=== PATIENT | female | born 1990 | race Caucasian/White ===

== ENCOUNTER 2022-05-03 14:54 | Emergency (ER) | payer OTHER, MEDICAID, SELFPAY ==
[2022-05-03 15:01] VITALS: BP 114/70; PULSE 64; RESP 15; TEMP 37.1; O2SAT 98; BMI 23.5
--- NOTE | 2022-05-03 15:08 | DI.US.S_ITS ---
PROCEDURE: US PELVIC COMPLETE INDICATIONS: vaginal bleeding approx 8 weeks TECHNIQUE: Real-time scanning was performed of the pelvic organs, with image documentation. Additional endovaginal scanning was necessary due to incomplete visualization of the adnexal and endometrial structures by transabdominal scanning. COMPARISON: US, PELVIC COMPLETE, 07/09/2016, 22:38. US, PELVIC COMPLETE, 06/20/2009, 8:22. FINDINGS: Uterus: Uterus is anteverted and normal in size at 7.9 x 4.7 x 6.3 cm. The myometrium is homogeneous. The endometrium measures 4-5 mm combined thickness. There is a trace amount of fluid seen along the fundus of the uterus Ovaries: The right ovary measures 4.7 x 2.6 x 2.9 cm, with a calculated ovarian volume of 17 cc. The left ovary measures 3.8 x 2.7 x 3.2 cm, with a calculated ovarian volume of seventeen cc. The ovaries have a normal sonographic appearance, with note made of a small hypoechoic region of the right ovary, which is most likely related to a resolving corpus luteum cyst. Less than 12 follicles can be seen in each ovary. No adnexal masses are seen. Normal appearing arterial waveforms are confirmed to each ovary. Other: No pathologic free abdominal or pelvic fluid. IMPRESSION: A small amount of fluid can be seen within the fundus of the uterus. No findings of an intrauterine are seen. Given history, these imaging findings are most compatible with a completed spontaneous miscarriage. Differential diagnosis includes ectopic , yet this is considered to be less likely. Close clinical followup, with serial beta-hCG and serial ultrasound are recommended, if clinically appropriate. We strive to produce accurate, complete, and clear reports of imaging services. To assist us in improving patient care, this report was composed using standard report templates and voice recognition software. Therefore, it may contain abnormal punctuation, insertions and/or omissions. Occasional wrong-word or sound-alike substitutions may occur. Though we review the report and make efforts to correct it, we do recommend that the report be read carefully in proper context to recognize any text inaccuracies. Dictated by: Baron Jara M.D. on 05/03/2022 at 14:50 Approved by: Baron Jara M.D. on 05/03/2022 at 14:52
[2022-05-03 15:24] LABS: Bilirubin Urine UA NEGATIVE (NEGATIVE); Color Urine UA RED; Glucose Urine UA NEGATIVE (Negative); Ketones Urine UA NEGATIVE (NEGATIVE); Leukocyte Esterase Urine UA TRACE (NEGATIVE); Nitrite Urine UA POSITIVE (Negative); Occult Blood Urine UA 3+ (Negative); Protein Urine UA 2+ (Negative); Urobilinogen Urine UA 0.2 E.U./dL (0.2)
[2022-05-03 15:28] LABS: Appearance Urine UA SL CLOUDY
[2022-05-03 15:31] LABS: Bacteria Urine Occasional (0-1); Culture Indicated Urine Specimen Cultured; RBC Urine >100/HPF (0-5/HPF); Squamous Epithelial Cell Urine 1-5 /HPF (0-5/HPF); WBC Urine 1-5/HPF (0-5/HPF)
[2022-05-03 16:06] LABS: Add Manual Diff / Slide Review NO; Basophils Absolute Auto 100 /uL (0-100); Eosinophils Absolute Auto 100 /uL (0-450); Eosinophils Percent Auto 1.2 % (2-4); Hematocrit 36.3 % (36-46); Hemoglobin 12.6 g/dL (12.0-16.0); Lymphocytes Absolute Auto 1800 /uL (1100-4500); Lymphocytes Percent Auto 28.6 % (25-40); Mean Corpuscular HGB Conc 34.6 % (30-36); Mean Corpuscular Hemoglobin 32.6 PG (26-34); Mean Corpuscular Volume 94.1 fL (80-100); Monocytes Absolute Auto 600 /uL (0-900); Monocytes Percent Auto 9.3 % (3-14); Neutrophils Absolute Auto 3800 /uL (1500-7000); Neutrophils Percent Auto 59.9 % (50-75); Platelet Count 245 X10^3/uL (150-400); Red Blood Cell Count 3.86 X10^6/uL (4.0-5.2); Red Cell Distribution Width 12.8 % (11.6-14.8); White Blood Cell Count 6.4 X10^3/uL (4.5-11.0)
[2022-05-03 16:18] LABS: Alanine Aminotransferase 11 IU/L (<35); Albumin 4.4 g/dL (3.5-5.0); Albumin Globulin Ratio 1.4 (1.0-2.8); Alkaline Phosphatase 35 U/L (38-126); Aspartate Aminotransferase 20 IU/L (14-36); BUN Creatinine Ratio 23.1 (6-22); Bilirubin Total 0.2 mg/dL (0.2-1.3); Blood Urea Nitrogen 15 mg/dL (7-17); Calcium 9.2 mg/dL (8.4-10.2); Carbon Dioxide 24 mmol/L (22-32); Chloride 106 mmol/L (98-107); Estimated Glomerular Filt Rate > 60 mL/min (>60); Globulin 3.2 g/dL (1.7-4.1); Glucose 85 mg/dL (70-100); HEMOLYSIS < 15 (0-50); Potassium 3.6 mmol/L (3.4-5.1); Sodium 139 mmol/L (137-145); Total Protein 7.6 g/dL (6.3-8.2)
[2022-05-03 16:33] LABS: HCG Quantitative /Beta subunit 5.7 mIU/mL
--- NOTE | 2022-05-03 16:48 | ED_ITS ---
HPI - Female Genitourinary General Chief complaint: Vaginal Bleeding Stated complaint: thinks miscarriage at 10 weeks Time Seen by Provider: 05/03/22 15:10 Source: patient Mode of arrival: Ambulatory History of Present Illness HPI Narrative: Patient is a 31-year-old female she 1Ab, 2mc, presents today with probable completion of her miscarriage. She said that she was trying to get . She thinks she was about 10 weeks along but she has not had an ultrasound to confirm this . She says she found out she was 4 days ago. Yesterday she started having cramping and bleeding. Today while waiting to be seen she passed a large blood clot and thinks she finished her miscarriage. She denies nausea or vomiting. No significant abdominal pain. No heavy vaginal bleeding Related Data Previous Rx's Medication Instructions Recorded nitrofurantoin 100 mg PO Q12H 5 days #10 caps 05/03/22 monohydrate/macrocrystals 100 mg capsule (Macrobid) Allergies Allergy/AdvReac Type Severity Reaction Status Date / Time Penicillins [PENICILLINS] Allergy Intermediate HIVES Verified 05/03/22 15:01 Review of Systems Review of Systems Narrative: GENERAL: Denies chills,fever HEENT: Denies throat pain RESPIRATORY: Denies dyspnea, cough, wheezing CARDIOVASCULAR: Denies chest pain, palpitations GASTROINTESTINAL: Denies nausea, vomiting RAG WILLOW OPERATOR: See HPI MUSCULOSKELETAL: Denies extremity pain, injury SKIN: No rash, no laceration, no pruritus NEUROLOGIC: Denies weakness, dizziness, headache, numbness 8 point review of systems is negative except for those stated above and HPI Patient History alcohol intake frequency: 0-2 drinks per day Substance Use Type: does not use Exam Initial Vital Signs Initial Vital Signs: Vital Signs Temperature 98.7 F 05/03/22 15:01 Pulse Rate 64 05/03/22 15:01 Respiratory Rate 15 05/03/22 15:01 Blood Pressure 114/70 05/03/22 15:01 Pulse Oximetry 98 05/03/22 15:01 Oxygen Delivery Method 05/03/22 15:01 GENERAL: Alert pleasant 31-year-old female and in no acute distress. HEENT: Head atraumatic,EOMI, pupils reactive, face symmetric, moist mucous membranes CARDIOVASCULAR: Regular rate and rhythm without murmurs, rubs or gallops. RESPIRATORY: Breath sounds equal bilaterally, no wheezes rales or rhonchi. ABDOMEN: Soft, nontender. Normoactive bowel sounds all 4 quadrants. No guarding or rebound. EXTREMITIES: Normal range of motion, no clubbing or edema. Neurovascularly intact NEUROLOGICAL: Alert and oriented x4. SKIN: Warm, dry, no laceration, no petechiae, no rashes or lesions. Course Orders Ordered: ED Orders 05/03/22 15:04 Urinalysis and Microscopic Stat Urine Culture Stat 05/03/22 15:08 US pelvic complete Stat 05/03/22 15:47 Complete Blood Count AUTO DIFF Stat Comprehensive Metabolic Panel Stat HCG Quantitative /Beta subunit Stat Type and Screen Stat Vital Signs Vital signs: Vital Signs - 8 hr 05/03/22 15:01 Temperature 98.7 F Pulse Rate 64 Respiratory Rate 15 Blood Pressure 114/70 Pulse Oximetry 98 Oxygen Delivery Method Room Air MDM - Female Genitourinary Lab Data Result diagrams: 05/03/22 15:47 05/03/22 15:47 Labs: Lab Results 05/03/22 05/03/22 05/03/22 Range/Units 15:04 15:47 15:47 WBC 6.4 (4.5-11.0) X10^3/uL RBC 3.86 L (4.0-5.2) X10^6/uL Hgb 12.6 (12.0-16.0) g/dL Hct 36.3 (36-46) % MCV 94.1 (80-100) fL MCH 32.6 (26-34) PG MCHC 34.6 (30-36) % RDW 12.8 (11.6-14.8) % Plt Count 245 (150-400) X10^3/uL Neut % (Auto) 59.9 (50-75) % Lymph % (Auto) 28.6 (25-40) % [place] % (Auto) 9.3 (3-14) % Eos % (Auto) 1.2 L (2-4) % Baso % (Auto) 1.0 (0-2) % Neut # (Auto) 3800 (6765-6330) /uL Lymph # (Auto) 1800 (5862-9380) /uL [place] # (Auto) 600 (0-900) /uL Eos # (Auto) 100 (0-450) /uL Baso # (Auto) 100 (0-100) /uL Sodium 139 (137-145) mmol/L Potassium 3.6 (3.4-5.1) mmol/L Chloride 106 (98-107) mmol/L Carbon Dioxide 24 (22-32) mmol/L BUN 15 (7-17) mg/dL Creatinine 0.65 (0.52-1.04) mg/dL Estimated GFR > 60 (>60) mL/min BUN/Creatinine Ratio 23.1 H (6-22) Glucose 85 (70-100) mg/dL Calcium 9.2 (8.4-10.2) mg/dL Total Bilirubin 0.2 (0.2-1.3) mg/dL AST 20 (14-36) IU/L ALT 11 (<35) IU/L Alkaline Phosphatase 35 L (38-126) U/L Total Protein 7.6 (6.3-8.2) g/dL Albumin 4.4 (3.5-5.0) g/dL Globulin 3.2 (1.7-4.1) g/dL Albumin/Globulin Ratio 1.4 (1.0-2.8) HCG, Quant 5.7 mIU/mL Urine Color Red Urine Appearance Sl cloudy Urine pH 7.0 (4.5-8.0) Ur Specific [place] 1.010 (1.000-1.035) Urine Protein 2+ H (Negative) Urine Glucose (UA) Negative (Negative) g/dL Urine Ketones Negative (NEGATIVE) Urine Occult Blood 3+ H (Negative) Urine Nitrate Positive H (Negative) Urine Bilirubin Negative (NEGATIVE) Urine Urobilinogen 0.2 (0.2) E.U./dL Ur Leukocyte Esterase Trace H (NEGATIVE) Urine RBC >100/hpf H (0-5/HPF) Urine WBC 1-5/hpf (0-5/HPF) Ur Squamous Epith Cells 1-5 /hpf (0-5/HPF) Urine Bacteria Occasional (0-1) (None) Ur Culture Indicated? Specimen cultured Blood Type Antibody Screen 05/03/22 Range/Units 15:47 WBC (4.5-11.0) X10^3/uL RBC (4.0-5.2) X10^6/uL Hgb (12.0-16.0) g/dL Hct (36-46) % MCV (80-100) fL MCH (26-34) PG MCHC (30-36) % RDW (11.6-14.8) % Plt Count (150-400) X10^3/uL Neut % (Auto) (50-75) % Lymph % (Auto) (25-40) % [place] % (Auto) (3-14) % Eos % (Auto) (2-4) % Baso % (Auto) (0-2) % Neut # (Auto) (4073-4358) /uL Lymph # (Auto) (3393-8747) /uL [place] # (Auto) (0-900) /uL Eos # (Auto) (0-450) /uL Baso # (Auto) (0-100) /uL Sodium (137-145) mmol/L Potassium (3.4-5.1) mmol/L Chloride (98-107) mmol/L Carbon Dioxide (22-32) mmol/L BUN (7-17) mg/dL Creatinine (0.52-1.04) mg/dL Estimated GFR (>60) mL/min BUN/Creatinine Ratio (6-22) Glucose (70-100) mg/dL Calcium (8.4-10.2) mg/dL Total Bilirubin (0.2-1.3) mg/dL AST (14-36) IU/L ALT (<35) IU/L Alkaline Phosphatase (38-126) U/L Total Protein (6.3-8.2) g/dL Albumin (3.5-5.0) g/dL Globulin (1.7-4.1) g/dL Albumin/Globulin Ratio (1.0-2.8) HCG, Quant mIU/mL Urine Color Urine Appearance Urine pH (4.5-8.0) Ur Specific [place] (1.000-1.035) Urine Protein (Negative) Urine Glucose (UA) (Negative) g/dL Urine Ketones (NEGATIVE) Urine Occult Blood (Negative) Urine Nitrate (Negative) Urine Bilirubin (NEGATIVE) Urine Urobilinogen (0.2) E.U./dL Ur Leukocyte Esterase (NEGATIVE) Urine RBC (0-5/HPF) Urine WBC (0-5/HPF) Ur Squamous Epith Cells (0-5/HPF) Urine Bacteria (None) Ur Culture Indicated? Blood Type A Positive Antibody Screen Negative Point of Care Testing Test Results Negative Imaging Data US - OB: Radiologist's Impression: Ultrasound Report Signed Patient: Amisha Palacios MR#: [id number] : 1990 Acct:[id number] Age/Sex: 31 / F Date of Service: 05/03/22 Loc: ED Accession Number: [id number] ?? Procedure: US pelvic complete Ordering Provider: Massiel Gutierrez D.O. PROCEDURE:? US PELVIC COMPLETE ? INDICATIONS:? vaginal bleeding approx 8 weeks ? TECHNIQUE:? Real-time scanning was performed of the pelvic organs, with image documentation.? Additional endovaginal scanning was necessary due to incomplete visualization of the adnexal and endometrial structures by transabdominal scanning.? ? COMPARISON:? US, PELVIC COMPLETE, 07/09/2016, 22:38.? US, PELVIC COMPLETE, 06/02, 8:22. ? FINDINGS:? ?? Uterus:? Uterus is anteverted and normal in size at 7.9 x 4.7 x 6.3 cm. The myometrium is homogeneous. ? The endometrium measures 4-5 mm combined thickness.? There is a t race amount of fluid seen along the fundus of the uterus ? Ovaries:? The right ovary measures 4.7 x 2.6 x 2.9 cm, with a calculated ovarian volume of 17 cc. The left ovary measures 3.8 x 2.7 x 3.2 cm, with a calculated ovarian volume of seventeen cc. The ovaries have a normal sonographic appearance, with note made of a small hypoechoic region of the right ovary, which is most likely related to a r esolving corpus luteum cyst. Less than 12 follicles can be seen in each ovary.? No adnexal masses are seen. Normal appearing arterial waveforms are confirmed to each ovary.? ? Other:? No pathologic free abdominal or pelvic fluid. ? ? IMPRESSION:? A small amount of fluid can be seen within the fundus of the uterus. ? No findings of an intrauterine are seen. ? Given history, these imaging findings are most compatible with a completed spontaneous miscarriage.? Differential diagnosis includes ectopic , yet this is considered to be less likely. ? Close clinical followup, with serial beta-hCG and serial ultrasound are recommended, if clinically appropriate. ? We strive to produce accurate, complete, and clear reports of imaging services. To assist us in improving patient care, this report was composed using standard report templates and voice recognition software. Therefore, it may contain abnormal punctuation, insertions and/or omissions. Occasional wrong-word or sound-alike substitutions may occur. Though we review the report and make efforts to correct it, we do recom mend that the report be read carefully in proper context to recognize any text inaccuracies. ? ? Dictated by: Baron Jara M.D. on 05/03/2022 at 14:50 ? ? Approved by: Baron Jara M.D. on 05/03/2022 at 14:52 ? MDM Narrative Medical decision making narrative: The patient likely had miscarriage today. HCG is 5.7, pelvic ultrasound does not show an IUP patient is wanting to go. She does have nitrates in her urine w ill treat her for a UTI. Overall hemodynamically stable. Rh type is pending. Discharge Plan Departure Patient Disposition: Home Clinical Impression: Urinary tract infection, Miscarriage Instructions: DI for Miscarriage, DI for Urinary Tract Infection (UTI) Activity Restrictions/Additional Instructions: *You have been diagnosed with UTI, miscarriage *What to do: I a.m. sorry about your miscarriage. Please follow-up with OBGYN Your blood type is pending. *Continue to take medications as directed Macrobid 100 mg twice a day for 5 days *Follow up with your primary care provider in 2-3 days or call [phone] *Return to ER if you should have increased vaginal bleeding more than 2 pads in 1 hours, dizziness lightheadedness or any new, worsening or concerning symptoms Prescriptions: New nitrofurantoin monohyd/m-cryst [Macrobid] 100 mg capsule 100 mg PO Q12H 5 Days Qty: 10 0RF Rx Instructions: must administer with a meal/food Referrals: Maryjo Ayala MD [Physician] - Misty Ayoub MD [Physician] - Patricia Pope MD [Physician] - Lewis Gomes MD [Physician] - Visit Report Forms: Patient Portal/API
== END 2022-05-03 17:15 | disposition home or self-care (01) ==
PROVIDERS: Emergency Provider Emergency Medicine
DX: O03.9 Complete or unspecified spontaneous abortion without complication (principal); N39.0 Urinary tract infection, site not specified
CPT/HCPCS: 76856; 80053; 81001; 81025; 84702; 85025; 86850; 86900; 86901; 87086; 99281; 99284

== ENCOUNTER 2022-07-11 11:51 | Emergency (ER) | payer OTHER, MEDICAID, SELFPAY ==
[2022-07-11 12:05] VITALS: BP 119/74; PULSE 86; RESP 18; TEMP 36.6; O2SAT 99
--- NOTE | 2022-07-11 12:36 | ED.FEMALEGU ---
HPI - Female Genitourinary <YASMEEN Hdz - Last Filed: 07/11/22 14:48> General Chief complaint: Urogenital-Female Stated complaint: thinks she bladder infection t-7 Time Seen by Provider: 07/11/22 12:08 Source: patient Mode of arrival: Ambulatory History of Present Illness HPI Narrative: This is a 31-year-old female who is a with 1 and 3 miscarriages who presents to the emergency department complaining of abnormal vaginal discharge, pelvic discomfort, a rash on her arms, legs, vaginal itching, and states that she had a miscarriage on 05/03/2022 at approximately 10 weeks' gestation. Patient states that she has had the same sexual partner, she is her last menstrual period was from 07/04/22-07/09. Denies any external vaginal rash, endorses itching to the rash on her legs, wrist, and her belly button. States that she completed a course of prednisone from a senior marketing associate for this rash. States that this prednisone helped. She was found to have a UTI at the same time she had a miscarriage and was treated with Macrobid. Related Data : 6 Para: 2 Previous Rx's Medication Instructions Recorded metronidazole 500 mg tablet 500 mg PO BID 10 days #20 tabs 07/11/22 mupirocin 2 % topical ointment 1 applic topical DAILY #15 grams 07/11/22 permethrin 5 % topical cream 1 applic topical Q14D 2 doses #60 07/11/22 grams valacyclovir 1 gram tablet 1,000 mg PO BID #14 tabs 07/11/22 Allergies Allergy/AdvReac Type Severity Reaction Status Date / Time Penicillins [PENICILLINS] Allergy Intermediate HIVES Verified 07/11/22 12:08 Review of Systems <YASMEEN Hdz - Last Filed: 07/11/22 14:48> Review of Systems Narrative: Review of systems is negative for acute abnormalities unless otherwise noted in HPI Patient History <YASMEEN Hdz - Last Filed: 07/11/22 14:48> alcohol intake frequency: 0-2 drinks per day Substance Use Type: does not use Exam <YASMEEN Hdz - Last Filed: 07/11/22 14:48> Narrative Exam Narrative: Reviewed vitals signs and nursing notes. General: cooperative, comfortable, in no acute distress, well groomed HEENT: symmetrical facial expressions, moist mucous membranes ABD: Abdomen is soft and nontender to palpation. There is no guarding or rebound. Bowel sounds are normal in all 4 quadrants. There is no mass or organomegaly. Umbilicus has erythema and flaking in the central without any discharge. SPECIAL PROCEDURES TECH: Pelvic exam completed with RN as manager play, patient denies tenderness with exam, Skin: brisk capillary refill, without pallor or erythema Neuro: normal speech and cognition, A&O x3, ambulatory, clear speech Psych: mental status is grossly normal, congruent mood, normal affect, pleasant and cooperative Initial Vital Signs Initial Vital Signs: Vital Signs Temperature 97.8 F 07/11/22 12:05 Pulse Rate 86 07/11/22 12:05 Respiratory Rate 18 07/11/22 12:05 Blood Pressure 119/74 07/11/22 12:05 Pulse Oximetry 99 07/11/22 12:05 Oxygen Delivery Method 07/11/22 12:05 <Vel Chang DO - Last Filed: 07/11/22 14:53> Initial Vital Signs Initial Vital Signs: Vital Signs Temperature 97.8 F 07/11/22 12:05 Pulse Rate 86 07/11/22 12:05 Respiratory Rate 18 07/11/22 12:05 Blood Pressure 119/74 07/11/22 12:05 Pulse Oximetry 99 07/11/22 12:05 Oxygen Delivery Method 07/11/22 12:05 Course <YASMEEN Hdz - Last Filed: 07/11/22 14:48> Orders Ordered: ED Orders 07/11/22 12:35 Chlamydia Gonorrhea PCR -URINE Stat Chlamydia/Gonoc/Myco Genital Stat Urine Culture Stat Urine Microscopic Stat Wet Prep Tric BV Deborah Stat Wound Culture and Gram Stain Stat Discontinued Medications Fluconazole (Fluconazole 100 Mg Tablet) 150 mg PO NOW ONE Stop: 07/11/22 12:50 Last Admin: 07/11/22 12:59 Dose: 150 mg Documented By: NICOLE Metronidazole (Metronidazole 500 Mg Tablet) 500 mg PO NOW ONE Stop: 07/11/22 12:50 Last Admin: 07/11/22 12:59 Dose: 500 mg Documented By: NICOLE Valacyclovir HCl (Valacyclovir 500 Mg Tablet) 1,000 mg PO NOW ONE Stop: 07/11/22 12:50 Last Admin: 07/11/22 12:59 Dose: 1,000 mg Documented By: NICOLE Vital Signs Vital signs: Vital Signs - 8 hr 07/11/22 12:05 Temperature 97.8 F Pulse Rate 86 Respiratory Rate 18 Blood Pressure 119/74 Pulse Oximetry 99 Oxygen Delivery Method Room Air <Vel Chang DO - Last Filed: 07/11/22 14:53> Orders Ordered: ED Orders 07/11/22 12:35 Chlamydia Gonorrhea PCR -URINE Stat Chlamydia/Gonoc/Myco Genital Stat Urine Culture Stat Urine Microscopic Stat Wet Prep Tric BV Deborah Stat Wound Culture and Gram Stain Stat Discontinued Medications Fluconazole (Fluconazole 100 Mg Tablet) 150 mg PO NOW ONE Stop: 07/11/22 12:50 Last Admin: 07/11/22 12:59 Dose: 150 mg Documented By: NICOLE Metronidazole (Metronidazole 500 Mg Tablet) 500 mg PO NOW ONE Stop: 07/11/22 12:50 Last Admin: 07/11/22 12:59 Dose: 500 mg Documented By: NICOLE Valacyclovir HCl (Valacyclovir 500 Mg Tablet) 1,000 mg PO NOW ONE Stop: 07/11/22 12:50 Last Admin: 07/11/22 12:59 Dose: 1,000 mg Documented By: NICOLE Vital Signs Vital signs: Vital Signs - 8 hr 07/11/22 12:05 Temperature 97.8 F Pulse Rate 86 Respiratory Rate 18 Blood Pressure 119/74 Pulse Oximetry 99 Oxygen Delivery Method Room Air MDM - Female Genitourinary <YASMEEN Hdz - Last Filed: 07/11/22 14:48> Lab Data Labs: Lab Results 07/11/22 07/11/22 Range/Units 12:35 12:35 Urine RBC None seen (0-5/HPF) Urine WBC None seen (0-5/HPF) Ur Squamous Epith Cells 0-1 /hpf (0-5/HPF) Urine Bacteria Occasional (0-1) (None) Ur Culture Indicated? Specimen cultured Ur Chlamydia DNA (PCR) Not detected N gonorrhoeae DNA (PCR) Not detected Point of Care Testing Test Results Negative Urine Dip Bedside Urine Glucose Negative Bedside Urine Bilirubin - Negative Bedside Urine Ketone - Negative Urine Specific [place] 1.010 Bedside Urine Occult Blood - Negative Bedside Urine pH 6.0 Bedside Urine Protein - Negative Bedside Urine Urobilinogen - Negative Bedside Urine Nitrite - Negative Bedside Urine Leukocytes - Negative Esterase Name: Amisha Palacios Age/Sex: 31/F Attend Dr: Shruthi Pepper Unit#: [id number] : 1990Location: ED Re07/11/22 Disch: Status: DEP ER SPEC #: [id number] TITUS: 07/11/22 STATUS: COMP REQ #: [id number] SPDESC: RECD: 07/11/[address]: Shruthi Pepper SOURCE: Vaginal ENTR: 07/11/[address]: Jessica Forde FAX TO: ORDERED: Wet Prep Procedure Result Verified Site Wet Prep Tric BV Deborah Final 07/11/22-1299 White blood cells No WBC seen Clue cells: None seen Yeast: None seen Trichomonas: None seen MDM Narrative Medical decision making narrative: This is a 31-year-old female presents to the emergency department complaining of abnormal vaginal discharge, she is a G6P 2 with a miscarriage most recently on 05/03/2022. Endorses itching, a rash on her bilateral legs, wrists which are raised maculopapular bumps, without an erythematous base. It looks like bug bites, potentially scabies versus bedbugs, with some lesions on her right hand that appeared to be herpes simplex. She has a rash central to her umbilicus which was flaking, it did have an erythematous base. She had to leave prior to waiting for her test results but everything came back reassuring. Her wet prep was negative for Trichomonas, yeast, bacterial vaginosis or white blood cells, her UA was negative for infection although it is pending for culture, chlamydia and gonorrhea PCR via urine were negative. Discussed these findings with the patient, she wished for treatment for yeast prior to discharge so she was given fluconazole, Flagyl 500 mg x 1, and valacyclovir for potential herpes infection of the dorsum of her right hand. She has a history of HSV, states she is never had an outbreak. Recommend that she come back to the emergency department to complete her workup if she is having ongoing symptoms. Patient is appropriate and amenable to discharge home. Vital signs are stable on repeat examination is unremarkable. Patient has been informed of results. Patient has been given strict return to ER precautions for any new or worsening symptoms. Patient understands to follow up closely with outpatient providers as instructed. Patient understands plan and agrees to discharge home. All questions and concerns answered at this time. <Vel Chang, DO - Last Filed: 07/11/22 14:53> Lab Data Labs: Lab Results 07/11/22 07/11/22 Range/Units 12:35 12:35 Urine RBC None seen (0-5/HPF) Urine WBC None seen (0-5/HPF) Ur Squamous Epith Cells 0-1 /hpf (0-5/HPF) Urine Bacteria Occasional (0-1) (None) Ur Culture Indicated? Specimen cultured Ur Chlamydia DNA (PCR) Not detected N gonorrhoeae DNA (PCR) Not detected Point of Care Testing Test Results Negative Urine Dip Bedside Urine Glucose Negative Bedside Urine Bilirubin - Negative Bedside Urine Ketone - Negative Urine Specific [place] 1.010 Bedside Urine Occult Blood - Negative Bedside Urine pH 6.0 Bedside Urine Protein - Negative Bedside Urine Urobilinogen - Negative Bedside Urine Nitrite - Negative Bedside Urine Leukocytes - Negative Esterase Discharge Plan Departure Patient Disposition: Home Clinical Impression: Rash and nonspecific skin eruption, Vaginal discharge Instructions: Scabies Activity Restrictions/Additional Instructions: *You have been diagnosed with a nonspecific rash which could be related to scabies, herpes, the lesions on your hand looks more like herpes than the rest but I would treat yourself with this permethrin cream to see if it helps. It could be bedbugs, wash all of your linens in your close and see if that treats it, try this rash see if that helps, I gave you treatment for herpes if you are having an outbreak, bacterial vaginosis with the [employer] eyes all and topical antibiotic ointment to put in your belly button as well. I will give you a call later when your tests are back and talk about what is best for you. *What to do: *Please continue to take your regular medications as directed. [ x] New medication prescriptions sent to your pharmacy: [ ] [ ] New medication written as a paper prescription [ ] No new medications given *Please follow up with your primary care provider in 2-3 days, call for an appointment. Let them know you were seen in the Emergency Department and that we asked that you be seen for follow-up. We will electronically transmit a record of today's note if your PCP is in our system *If you do not have a primary care provider please contact [phone] to establish care with one of the [facility] primary care providers. *Return to Emergency Department if you should have any new, worsening, or concerning symptoms, such as [fever greater than 101F, chills, worsening pain, persistent vomiting or other bothersome symptoms]. Prescriptions: New permethrin 5 % cream 1 applic topical Q14D Qty: 60 0RF Rx Instructions: apply second treatment 14 days after first treatment if rash remains mupirocin 2 % ointment 1 applic topical DAILY Qty: 15 0RF metronidazole 500 mg tablet 500 mg PO BID 10 Days Qty: 20 0RF valacyclovir 1 gram tablet 1,000 mg PO BID Qty: 14 0RF Referrals: Jessica Forde ARNP [Primary Care Provider] - Visit Report Forms: Patient Portal/API <Vel Chang, DO - Last Filed: 07/11/22 14:53> Cosign ED Attending Cosignature Attestation: Dr Chang Co-Sign Statement: I was available for consultation during this patient's emergency department visit. This chart is signed by myself for administrative purposes only. I did not have direct contact with this patient during this visit. They were seen independently by the APC.
[2022-07-11 12:59] LABS: Bacteria Urine Occasional (0-1); RBC Urine None Seen (0-5/HPF); Squamous Epithelial Cell Urine 0-1 /HPF (0-5/HPF); WBC Urine None Seen (0-5/HPF)
[2022-07-11] MEDS: valACYclovir 500 MG TABLET 1000 MG PO (12:59)
[2022-07-11] MEDS: metroNIDAZOLE 500 MG TABLET PO (12:59)
[2022-07-11] MEDS: FLUCONAZOLE 100 MG TABLET 150 MG PO (12:59)
[2022-07-11 13:00] LABS: Culture Indicated Urine Specimen Cultured
[2022-07-11 14:21] LABS: Urine N gonorrhoeae NOT DETECTED
[2022-07-11 14:34] LABS: Urine Chlamydia NOT DETECTED
[2022-07-13 18:37] LABS: Chlamydia trachomatis Negative (Negative); Mycoplasma genitalium Negative (Negative); Neisseria gonorrhoeae Negative (Negative)
== END 2022-07-11 13:01 | disposition home or self-care (01) ==
PROVIDERS: Emergency Provider Nurse Practitioner Critical Care Medicine; PCP Nurse Practitioner
DX: N89.8 Other specified noninflammatory disorders of vagina (principal); R21 Rash and other nonspecific skin eruption; R10.2 Pelvic and perineal pain
CPT/HCPCS: 81003; 81015; 81025; 87070; 87075; 87086; 87205; 87210; 87491; 87563; 87591; 99283; 99284

== ENCOUNTER → 2022-10-04 12:48 | Outpatient (CLI) | payer OTHER, MEDICAID, SELFPAY ==
--- NOTE | 2022-10-04 12:49 | DI.US.S_ITS ---
PROCEDURE: US OB <= 14 WEEKS FETUS INDICATIONS: dating and viability OUTSIDE/PRIOR DATING DATA: Last menstrual period (LMP): 08/06/2022 LMP-based estimated date of delivery (EVELIA): 05/13/2023. First dating scan (date and location): 10/04/2022. Estimated date of delivery (EVELIA) from first dating scan: 05/20/2023. TECHNIQUE: Real-time scanning was performed of the fetus and maternal pelvic organs, with image documentation. Endovaginal scanning was also performed to better visualize the fetus and maternal ovaries. COMPARISON: None. FINDINGS: Embryo: [place]-rump length measures 1.3 cm corresponding to 7 weeks 3 days. Heart rate: 145 Maternal organs: Ovaries within normal limits, with right corpus luteal cyst. 8 mm maternal anterior intramural fibroid. IMPRESSION: 1. 7 week 3 day single living IUP corresponding to ultrasound EVELIA of 05/20/2023. 2. 8 mm maternal anterior intramural fibroid. We strive to produce accurate, complete, and clear reports of imaging services. To assist us in improving patient care, this report was composed using standard report templates and voice recognition software. Therefore, it may contain abnormal punctuation, insertions and/or omissions. Occasional wrong-word or sound-alike substitutions may occur. Though we review the report and make efforts to correct it, we do recommend that the report be read carefully in proper context to recognize any text inaccuracies. Dictated by: Miles HOUSTON Interpreted: Ken Platt MD on 10/04/2022 at 13:35 Transcribed by: CHIKI on 10/04/2022 at 13:37 Approved by: Ken Platt M.D. on 10/05/2022 at 8:37
== END ==
PROVIDERS: PCP Nurse Practitioner; Referring Provider Obstetrics & Gynecology; Visit Provider Obstetrics & Gynecology
DX: Z36.87 Encounter for antenatal screening for uncertain dates (principal); O34.11 Maternal care for benign tumor of corpus uteri, first trimester; D25.1 Intramural leiomyoma of uterus; Z3A.01 Less than 8 weeks gestation of pregnancy
CPT/HCPCS: 76801; 76817

== ENCOUNTER → 2022-11-02 14:13 | Outpatient (CLI) | payer OTHER, MEDICAID, SELFPAY ==
[2022-11-02 20:22] LABS: Urine N gonorrhoeae NOT DETECTED
[2022-11-02 20:31] LABS: Urine Chlamydia NOT DETECTED
== END ==
PROVIDERS: PCP Nurse Practitioner; Visit Provider Obstetrics & Gynecology
DX: Z34.81 Encounter for supervision of other normal pregnancy, first trimester (principal); Z3A.12 12 weeks gestation of pregnancy
CPT/HCPCS: 87491; 87591

== ENCOUNTER → 2022-11-03 11:45 | Outpatient (CLI) | payer OTHER, MEDICAID, SELFPAY ==
[2022-11-03 12:44] LABS: Add Manual Diff / Slide Review NO; Basophils Absolute Auto 0 /uL (0-100); Basophils Percent Auto 0.3 % (0-2); Eosinophils Absolute Auto 100 /uL (0-450); Eosinophils Percent Auto 0.9 % (2-4); Hemoglobin 12.1 g/dL (12.0-16.0); Lymphocytes Absolute Auto 1500 /uL (1100-4500); Lymphocytes Percent Auto 21.2 % (25-40); Mean Corpuscular HGB Conc 34.7 % (30-36); Mean Corpuscular Hemoglobin 31.4 PG (26-34); Mean Corpuscular Volume 90.6 fL (80-100); Monocytes Absolute Auto 400 /uL (0-900); Monocytes Percent Auto 5.3 % (3-14); Neutrophils Absolute Auto 5200 /uL (1500-7000); Neutrophils Percent Auto 72.3 % (50-75); Platelet Count 237 X10^3/uL (150-400); Red Blood Cell Count 3.86 X10^6/uL (4.0-5.2); Red Cell Distribution Width 12.3 % (11.6-14.8); White Blood Cell Count 7.2 X10^3/uL (4.5-11.0)
[2022-11-03 13:30] LABS: Appearance Urine UA CLEAR; Bilirubin Urine UA NEGATIVE (NEGATIVE); Color Urine UA YELLOW; Glucose Urine UA NEGATIVE (Negative); Ketones Urine UA NEGATIVE (NEGATIVE); Leukocyte Esterase Urine UA NEGATIVE (NEGATIVE); Nitrite Urine UA NEGATIVE (Negative); Occult Blood Urine UA NEGATIVE (Negative); Protein Urine UA NEGATIVE (Negative); Specific Gravity Urine UA 1.015 (1.000-1.035); Urobilinogen Urine UA 0.2 E.U./dL (0.2)
[2022-11-04 10:27] LABS: Varicella IgG Antibody 1308 index (Immune >165)
[2022-11-05 16:09] LABS: Rubella Antibody IgG 22.5 IU/mL (>15)
[2022-11-05 16:30] LABS: HIV 1 & 2 Ab/Ag 4th Gen Combo NEGATIVE (NEGATIVE); Hep C Virus Ab w/Reflex Quant REACTIVE s/c (NEGATIVE); Hepatitis B Surface Antigen NEGATIVE s/c (NEGATIVE)
[2022-11-06 05:52] LABS: RPR Screen Non Reactive (Non Reactive)
== END ==
PROVIDERS: PCP Nurse Practitioner; Referring Provider Obstetrics & Gynecology; Visit Provider Obstetrics & Gynecology
DX: Z34.81 Encounter for supervision of other normal pregnancy, first trimester (principal)
CPT/HCPCS: 36415; 80055; 81003; 86787; 86803; 86850; 86900; 86901; 87086; 87389; 87522

== ENCOUNTER → 2023-01-10 13:28 | Outpatient (CLI) | payer OTHER, MEDICAID, SELFPAY ==
--- NOTE | 2023-01-10 13:30 | DI.US.S_ITS ---
PROCEDURE: US OB >= 14 WEEKS FETUS INDICATIONS: 20 WEEK ANATOMY SCAN OUTSIDE/PRIOR DATING DATA: Last menstrual period (LMP): 08/06/2022 LMP-based estimated date of delivery (EVELIA): 05/13/2023. First dating scan (date and location): 10/04/2022. Estimated date of delivery (EVELIA) from first dating scan: 05/20/2023. TECHNIQUE: Real-time scanning was performed of the fetus, with image documentation and biometric measurements. COMPARISON: [facility], , OB <= 14 WEEKS FETUS, 10/04/2022, 12:59. FINDINGS: General: A single living intrauterine gestation is present. Presentation: Vertex. Placenta: Placental position is posterior , without previa. Amniotic fluid index: 16.2 cm, normal range is 5-24 cm. Single deepest vertical pocket is 4.9 cm. heart rate: 139 beats per minute. Maternal cervical canal: 4.4 cm long. Normal lower limit is 2.5 cm. biometrics: Biparietal diameter: 22 weeks Head circumference: 21 weeks 2 days Abdominal circumference: 22 weeks 1 day Femur length: 22 weeks 1 day Clinically estimated gestational age: 21 weeks 3 days Composite gestational age from present scan: 21 weeks 6 days Estimated weight and percentile: 470 g; 76 percentile Anatomic survey: Neuro: Ventricles are non-dilated at less than 10 mm. Cisterna magna is normal at 3-11 mm. Cerebellum is normal in size and morphology. Nuchal skin fold: Normal at less than 6 mm between 14-21 weeks gestational age. Face: Nose and lips, facial profile are normal. Spine: No evidence for spina bifida. Heart: 4-chambered heart is present, with normal ventricular outflow tracts. Diaphragm: Diaphragm is intact. Stomach: Left-sided stomach is present. Kidneys: No hydronephrosis. Normal is less than 5 mm in 2nd trimester, less than 7 mm in 3rd trimester. Cord: 3-vessel cord has orthotopic insertion. Bladder: Normal in size. Extremities: All 4 extremities identified. IMPRESSION: 1. Single living IUP redemonstrated and interval growth is normal. 2. Normal anatomic survey. We strive to produce accurate, complete, and clear reports of imaging services. To assist us in improving patient care, this report was composed using standard report templates and voice recognition software. Therefore, it may contain abnormal punctuation, insertions and/or omissions. Occasional wrong-word or sound-alike substitutions may occur. Though we review the report and make efforts to correct it, we do recommend that the report be read carefully in proper context to recognize any text inaccuracies. Dictated by: Miles HOUSTON Interpreted: Brian Betancourt MD on 01/10/2023 at 16:24 Transcribed by: IDALMIS on 01/10/2023 at 16:25 Approved by: Brian Betancourt M.D. on 01/10/2023 at 16:59
== END ==
PROVIDERS: PCP Nurse Practitioner; Referring Provider Obstetrics & Gynecology; Visit Provider Obstetrics & Gynecology
DX: Z34.82 Encounter for supervision of other normal pregnancy, second trimester (principal); Z3A.21 21 weeks gestation of pregnancy
CPT/HCPCS: 76811

== ENCOUNTER 2023-01-30 20:55 | Observation (INO) | payer OTHER, MEDICAID, SELFPAY ==
--- NOTE | 2023-01-30 21:27 | DI.US.S_ITS ---
PROCEDURE: US OB LIMITED INDICATIONS: LOWER ABDOMINAL PAIN; HISTORY INCOMPETENT CERVIX OUTSIDE/PRIOR DATING DATA: Last menstrual period (LMP): 08/06/2022. LMP-based estimated date of delivery (EVELIA): 05/13/2023. First dating scan (date and location): 10/04/2022. Estimated date of delivery (EVELIA) from first dating scan: 05/20/2023. The calculations are made using the ultrasound EVELIA of 05/20/2023. TECHNIQUE: Real-time scanning was performed of the fetus, with image documentation and biometric measurements. Biophysical profile was also obtained. COMPARISON: [facility], OB <= 14 WEEKS FETUS, 10/04/2022, 12:59. [facility], OB >= 14 WEEKS FETUS, 01/10/2023, 13:39. FINDINGS: General: A single living intrauterine gestation is present. Presentation: Vertex. Placenta: Placental position is posterior , without previa. Amniotic fluid index: 20.1 cm, normal range is 5-24 cm. Single deepest vertical pocket is 7.1 cm. heart rate: 131 beats per minute. Maternal cervical canal: The closed cervix measures 2.3 cm long. Normal lower limit is 2.5 cm. In addition, there is funneling involving a segment of the cervix measuring 2.8 cm in length. IMPRESSION: 1. Single living intrauterine demonstrated in vertex presentation. 2. Amniotic fluid index at the upper limits of normal. 3. Funneling demonstrated in the cervix with a short closed segment measuring 2.3 cm in length. We strive to produce accurate, complete, and clear reports of imaging services. To assist us in improving patient care, this report was composed using standard report templates and voice recognition software. Therefore, it may contain abnormal punctuation, insertions and/or omissions. Occasional wrong-word or sound-alike substitutions may occur. Though we review the report and make efforts to correct it, we do recommend that the report be read carefully in proper context to recognize any text inaccuracies. Dictated by: Aleksandr Russo M.D. on 01/30/2023 at 23:16 Approved by: Aleksandr Russo M.D. on 01/30/2023 at 23:21
[2023-01-30 22:00] LABS: Appearance Urine UA CLEAR; Bilirubin Urine UA NEGATIVE (NEGATIVE); Color Urine UA YELLOW; Glucose Urine UA NEGATIVE (Negative); Ketones Urine UA NEGATIVE (NEGATIVE); Leukocyte Esterase Urine UA NEGATIVE (NEGATIVE); Nitrite Urine UA NEGATIVE (Negative); Occult Blood Urine UA NEGATIVE (Negative); Protein Urine UA NEGATIVE (Negative); Urobilinogen Urine UA 0.2 E.U./dL (0.2)
[2023-01-30 22:01] LABS: pH Urine UA 7.5 (4.5-8.0)
[2023-01-30 22:06] LABS: RBC Urine None Seen (0-5/HPF); WBC Urine 0-1/HPF (0-5/HPF)
[2023-01-30 22:07] LABS: Amorphous Sediment Urine 2+; Bacteria Urine None Seen; Culture Indicated Urine Specimen Cultured; Squamous Epithelial Cell Urine 5-10 /HPF (0-5/HPF)
[2023-01-30 22:44] LABS: Fetal Fibronectin Negative
[2023-01-30 22:54] LABS: Strep Grp B PCR NEG for Grp B Strep
--- NOTE | 2023-01-31 07:59 | PM.OBTRLD ---
Visit Information Visit Information Date of evaluation: 01/30/23 Primary OB Provider: Lewis Gomes On-call OB Provider: Lewis Gomes Reason for Evaluation: Yes pre-term labor Comments/Additional reasons for admission: Amisha is a 32 yo , EVELIA 05/20/2023 now at 24+2 wks EGA who has been experiencing lower abdominal discomfort and a change in vaginal discharge since earlier today and advised to come in for due to her history of premature cervical dilation/effacement/delivery with her second . Her third delivery was full term but according to the patient, she had early effacement of the cervix with that as well. She denies regular contractions or vaginal bleeding and her baby is active. Vital Signs Vital Signs: BP: 109/66 P:82 T: 37.2C PFSH Medical History Alcohol abuse Bacterial vaginosis Genital herpes (~2017) Hepatitis C PID (acute pelvic inflammatory disease) labor Trichinosis Trichomonas infection Urinary tract infection Uses drugs by injection Surgical History (Updated 09/18/22 @ 15:07 by Cindy Richardson RN) H/O skin graft [place] teeth extracted Family History (Updated 09/18/22 @ 15:12 by Cindy Richardson RN) Grandfather Prostate cancer Father Hypertension Social History marital status: number of children: 3 household members: spouse and children lives independently: Yes caregiver/support person: Yes housing: house pets and animals: Yes (1 cat, aware of toxo precautions) education level: other (10th grade; working on [employer]) occupational status: employed current occupational exposures/hazards: No amy/buddhist: Religious special amy needs: No travel history: over 6 months ago seatbelt use: always helmet use: Yes water heater temp set < 120 deg: Yes working smoke detector in home: Yes fire extinguisher in home: Yes carbon monox detector in home: Yes firearms in home: Yes firearms unloaded and locked: Yes do you feel safe at home: Yes Smoking Status: Former smoker (Quit age 26) Tobacco: How many years used: 15 second hand exposure: No alcohol intake: former (wine regularly when not ) during the past year weight has: remained stable well-balanced diet: daily or most days daily servings fruits/ve-4 caffeine: Yes (aware of 200mg limit) Type(s) of exercise: walking Review of Systems Review of Systems Narrative: Problem-specific ROS positives included in HPI Objective Imaging OB US: Radiologist's impression: PROCEDURE:? US OB LIMITED ? INDICATIONS:? LOWER ABDOMINAL PAIN; HISTORY INCOMPETENT CERVIX ? OUTSIDE/PRIOR DATING DATA:? Last menstrual period (LMP):? 08/06/2022.? LMP-based estimated date of delivery (EVELIA):? 05/13/2023.? First dating scan (date and location):? 10/04/2022.? Estimated date of delivery (EVELIA) from first dating scan:? 05/20/2023. The calculations are made using the ultrasound EVELIA of 05/20/2023.? ? TECHNIQUE:? Real-time scanning was performed of the fetus, with image documentation and biometric measurements.? Biophysical profile was also obtained.? ? COMPARISON:? [facility], OB <= 14 WEEKS FETUS, 10/04/2022, 12:59.? [facility], OB >= 14 WEEKS FETUS, 01/10/2023, 13:39. ? FINDINGS:? ? General:? A single living intrauterine gestation is present.? Presentation:? Vertex.? Placenta:? Placental position is posterior , without previa.? ? Amniotic fluid index:? 20.1 cm, normal range is 5-24 cm.? Single deepest vertical pocket is 7.1 cm. heart rate:? 131 beats per minute.? Maternal cervical canal:? The closed cervix measures 2.3 cm long.? Normal lower limit is 2.5 cm.? In addition, there is funneling involving a segment of the cervix measuring 2.8 cm in length.? ? ? IMPRESSION:? ? 1. Single living intrauterine demonstrated in vertex presentation. ? 2. Amniotic fluid index at the upper limits of normal. ? 3. Funneling demonstrated in the cervix with a short closed segment measuring 2.3 cm in length.? Labs Labs: Laboratory Results - last 24 hr 01/30/23 01/30/23 01/30/23 21:10 21:40 21:40 Urine Color Yellow Urine Appearance Clear Urine pH 7.5 Ur Specific [place] 1.010 Urine Protein Negative Urine Glucose (UA) Negative Urine Ketones Negative Urine Occult Blood Negative Urine Nitrate Negative Urine Bilirubin Negative Urine Urobilinogen 0.2 Ur Leukocyte Esterase Negative Urine RBC None seen Urine WBC 0-1/hpf Ur Squamous Epith Cells 5-10 /hpf H Amorphous Sediment 2+ Urine Bacteria None seen Ur Culture Indicated? Specimen cultured Group B Strep (PCR) Neg for grp b strep Fibronectin Negative Evaluation Evaluation Baseline heart rate: 140 Variability: Average (6-10) monitor accelerations: Present Monitor Decelerations: Absent Category of Tracing: Reactive (Reactive for EGA) Status: Category l Comments: Cervical length by ultrasound: 2.3 cm with funneling fibronectin: negative Diagnosis, Plan/Disposition Final Diagnosis (1) : Status: Acute Problem details: Currently 24+2 wks EGA (2) History of premature delivery, currently : Status: Acute (3) Short cervix during in second trimester: Status: Acute Plan/Disposition Plan: Will place a bedrest at home w/ nothing PV. GBS PCR obtained and submitted; Negative. Will submit urgent consult to [facility] for evaluation and co-management due to high risk for PTL&D. OB Disposition: home
== END 2023-01-30 23:50 | disposition home or self-care (01) ==
PROVIDERS: Admitting Provider Obstetrics & Gynecology; PCP Nurse Practitioner; Referring Provider Obstetrics & Gynecology; Visit Provider Obstetrics & Gynecology
DX: O26.872 Cervical shortening, second trimester (principal); O09.212 Supervision of pregnancy with history of pre-term labor, second trimester; Z3A.24 24 weeks gestation of pregnancy
CPT/HCPCS: 59025; 59050; 76815; 76817; 81001; 82731; 87081; 87086; 87653; G0378; G0379

== ENCOUNTER → 2023-02-19 14:37 | Outpatient (CLI) | payer OTHER, MEDICAID, SELFPAY ==
[2023-02-19 16:20] LABS: Hematocrit 34.7 % (36-46); Hemoglobin 12.1 g/dL (12.0-16.0)
[2023-02-19 16:38] LABS: GTT (PREG) 1 Hour PP 50gm Dose 153 mg/dL (76-139)
== END ==
PROVIDERS: PCP Nurse Practitioner; Referring Provider Obstetrics & Gynecology; Visit Provider Obstetrics & Gynecology
DX: Z34.82 Encounter for supervision of other normal pregnancy, second trimester (principal); Z3A.26 26 weeks gestation of pregnancy
CPT/HCPCS: 36415; 82950; 85014; 85018

== ENCOUNTER 2023-03-27 07:33 | Outpatient (CLI) | payer OTHER, MEDICAID, SELFPAY | END 2023-03-27 08:15 | disposition home or self-care (01) | LOC: LABOR 08:13 → OB 04-01 06:32 | PROVIDERS: PCP Nurse Practitioner; Referring Provider Obstetrics & Gynecology; Visit Provider Obstetrics & Gynecology | DX: O60.03 Preterm labor without delivery, third trimester (principal); Z3A.32 32 weeks gestation of pregnancy | CPT/HCPCS: 59025; G0378; G0379 ==

== ENCOUNTER → 2023-04-11 10:15 | Outpatient (CLI) | payer OTHER, MEDICAID, SELFPAY ==
[2023-04-11 12:11] LABS: Glucose Fasting 81 mg/dL (70-100)
[2023-04-11 13:42] LABS: Glucose 1 Hour 152 mg/dL (70-170)
[2023-04-11 13:44] LABS: Glucose 2 Hour 177 mg/dL (70-140)
[2023-04-11 13:45] LABS: Glucose Tol Interpretation INTERPRETATION
[2023-04-11 14:47] LABS: Glucose 3 Hour 104 mg/dL (70-115)
== END ==
PROVIDERS: PCP Nurse Practitioner; Referring Provider Obstetrics & Gynecology; Visit Provider Obstetrics & Gynecology
DX: O99.810 Abnormal glucose complicating pregnancy (principal); Z3A.00 Weeks of gestation of pregnancy not specified
CPT/HCPCS: 36415; 82951; 82952

== ENCOUNTER → 2023-04-17 11:31 | Outpatient (CLI) | payer OTHER, MEDICAID, SELFPAY ==
[2023-04-18 13:28] LABS: Strep Grp B PCR NEG for Grp B Strep
== END ==
PROVIDERS: PCP Nurse Practitioner; Visit Provider Obstetrics & Gynecology
DX: Z34.83 Encounter for supervision of other normal pregnancy, third trimester (principal); Z3A.35 35 weeks gestation of pregnancy
CPT/HCPCS: 87653

== ENCOUNTER 2023-05-02 07:32 | Observation (INO) | payer OTHER, MEDICAID, SELFPAY ==
--- NOTE | 2023-05-02 08:37 | PM.OBTRLD ---
Visit Information Visit Information Date of evaluation: 05/02/23 On-call OB Provider: Mirella Monte Reason for Evaluation: Yes rule out labor Vital Signs Vital Signs: Blood pressure 114/65, pulse 73, temperature 36.3? PFSH Medical History Alcohol abuse Bacterial vaginosis Genital herpes (~2017) Hepatitis C PID (acute pelvic inflammatory disease) labor Trichinosis Trichomonas infection Urinary tract infection Uses drugs by injection Surgical History (Updated 09/18/22 @ 15:07 by Cindy Richardson RN) H/O skin graft [place] teeth extracted Family History (Updated 09/18/22 @ 15:12 by Cindy Richardson, REINALDO) Grandfather Prostate cancer Father Hypertension Social History marital status: number of children: 3 household members: spouse and children lives independently: Yes caregiver/support person: Yes housing: house pets and animals: Yes (1 cat, aware of toxo precautions) education level: other (10th grade; working on [employer]) occupational status: employed current occupational exposures/hazards: No amy/roman catholic: Taoist special amy needs: No travel history: over 6 months ago seatbelt use: always helmet use: Yes water heater temp set < 120 deg: Yes working smoke detector in home: Yes fire extinguisher in home: Yes carbon monox detector in home: Yes firearms in home: Yes firearms unloaded and locked: Yes do you feel safe at home: Yes Smoking Status: Former smoker (Quit age 26) Tobacco: How many years used: 15 second hand exposure: No alcohol intake: former (wine regularly when not ) during the past year weight has: remained stable well-balanced diet: daily or most days daily servings fruits/ve-4 caffeine: Yes (aware of 200mg limit) Type(s) of exercise: walking Review of Systems Review of Systems Narrative: Patient comes in complaining of contractions. No leakage of fluid. No vaginal bleeding. Good movement. Evaluation Evaluation Baseline heart rate: 10 Variability: Moderate (11-25) monitor accelerations: Present Monitor Decelerations: Absent Contraction Frequency (minutes): 8 Uterine Contraction Intensity: Moderate Category of Tracing: Reactive Status: Category l Cervical dilation (cm): 2 Cervical effacement (%): 70 station: -2 Diagnosis, Plan/Disposition Final Diagnosis (1) History of premature delivery, currently : Status: Acute (2) 37 weeks gestation of : Status: Acute (3) False labor after 37 completed weeks of gestation: Status: Acute Plan/Disposition Plan: Patient to go home. Return if leakage of fluid, increasing contractions, other concerns. Otherwise keep routine OB appointment. OB Disposition: home
== END 2023-05-02 08:50 | disposition home or self-care (01) ==
PROVIDERS: Admitting Provider Obstetrics & Gynecology; PCP Nurse Practitioner; Referring Provider Obstetrics & Gynecology; Visit Provider Obstetrics & Gynecology
DX: O47.1 False labor at or after 37 completed weeks of gestation (principal); O09.213 Supervision of pregnancy with history of pre-term labor, third trimester; Z3A.37 37 weeks gestation of pregnancy
CPT/HCPCS: 59025; G0378; G0379

== ENCOUNTER 2023-05-02 13:03 | Inpatient (IN) | payer OTHER, MEDICAID, SELFPAY ==
[2023-05-02] MEDS: LACTATED RINGERS 1,000 ML 100 ML IV (13:11)
--- NOTE | 2023-05-02 13:33 | P.HPOB_ITS ---
OB HPI Date/Time Date of admission: 05/02/23 Date Patient Seen: 05/02/23 Time Patient Seen: 13:34 History of Present Condition Chief complaint: obs of labor : 9 Para: 3 Estimated Date of Delivery: 05/20/23 Estimated Gestational Age (weeks): 37 Narrative: Amisha Palaicos is a 32 year old female Comments: Patient is a 32-year-old 9 para 3, SAB 2, TAB 2, three-month old demise from SIDS prior who arrived on Labor and delivery in active labor History of Present care: good care, initiated at week # (11), number of visits (12) and pounds weight gain (44) Dating criteria: LMP confirmed by 1st trimester US Ultrasounds: normal mid trimester US Obstetrical complications: none Medical complications: none Preadmission Labs Blood type: A (+) positive -: Antibody screen: negative, GBS status: negative, HBsAG: negative, HIV: negative, HSV 2: positive and RPR/VDLR: negative -: Chlamydia screen: not detected and Gonorrhea screen: not detected -: Rubella: immune and Varicella: immune HCAB: reactive (Treated with antivirals with no viral load) 1 hr GTT: 153 3 hr GTT: 1 hr (152), 2 hr (177) and 3 hr (104) Fasting blood glucose: 81 Prior (ies) History: Del. DateGA/WeeksLabor LgthBirth WtSexRouteOutcomeAnesthesiaPlace DelvBreastfeedPreg CompName 12/25/04 ~40 6 lb Malevaginallive - full termnoneIHn/apreterm laborAnthony 10/20/05 32 4 lb Malevaginallive - IHfew weekspreterm labor deliveryDavid 09/02/06 ~6 elective 06/04/08 ~40 6 lb Femalevaginallive - full term IH 7 months noneAlexis 09/02/09 4-6 spontaneous 01/31/21 ~10 elective 05/03/22 8 spontaneous Del. DateGA/WeeksLabor LgthBirth WtSexRouteOutcomeAnesthesiaPlace DelvBreastfeedPreg CompName 12/25/04 ~40 6 lb Malevaginallive - full termnoneIHn/apreterm laborAnthony 10/20/05 32 4 lb Malevaginallive - IHfew weekspreterm labor deliveryDavid 09/02/06 ~6 elective 06/04/08 ~40 6 lb Femalevaginallive - full term IH 7 months noneAlexis 09/02/09 4-6 spontaneous 01/31/21 ~10 elective 05/03/22 8 spontaneous Evaluation Evaluation Baseline heart rate: 130 Variability: Moderate (11-25) monitor accelerations: Present Monitor Decelerations: Absent Contraction Frequency (minutes): 4 Uterine Contraction Intensity: Strong/Firm Category of Tracing: Reactive Status: Category l Dilation (cm): 8 Effacement (%): 80 station: 0 Position of cervix: mid Consistency: soft PFSH Medical History Alcohol abuse Bacterial vaginosis Genital herpes (~2016) Hepatitis C PID (acute pelvic inflammatory disease) labor Trichinosis Trichomonas infection Urinary tract infection Uses drugs by injection Surgical History (Updated 09/18/22 @ 15:07 by Cindy Richardson RN) H/O skin graft [place] teeth extracted Family History (Updated 09/18/22 @ 15:12 by Cindy Richardson RN) Grandfather Prostate cancer Father Hypertension Social History marital status: number of children: 3 household members: spouse and children lives independently: Yes caregiver/support person: Yes housing: house pets and animals: Yes (1 cat, aware of toxo precautions) education level: other (10th grade; working on [employer]) occupational status: employed current occupational exposures/hazards: No amy/restorationist: Zoroastrian special amy needs: No travel history: over 6 months ago seatbelt use: always helmet use: Yes water heater temp set < 120 deg: Yes working smoke detector in home: Yes fire extinguisher in home: Yes carbon monox detector in home: Yes firearms in home: Yes firearms unloaded and locked: Yes do you feel safe at home: Yes Smoking Status: Former smoker (Quit age 26) Tobacco: How many years used: 15 second hand exposure: No alcohol intake: former (wine regularly when not ) during the past year weight has: remained stable well-balanced diet: daily or most days daily servings fruits/ve-4 caffeine: Yes (aware of 200mg limit) Type(s) of exercise: walking Meds Home Medications and Allergies Home Medications Medication Instructions Recorded Confirmed Type triamcinolone acetonide 0.1 % 1 applic topical DAILY PRN rash 07/11/22 04/24/23 Rx topical ointment #80 grams prenat.vits,mayelin,snl-ebss-hxadr 1 tab PO DAILY 09/28/22 04/24/23 History Allergies Allergy/AdvReac Type Severity Reaction Status Date / Time Penicillins [PENICILLINS] Allergy Intermediate HIVES Verified 04/24/23 15:13 Review of Systems Review of Systems Narrative: Patient denies leakage of fluid. No vaginal bleeding. Was evaluated earlier today on Labor and delivery and was 2 cm dilated and sent home. Her contractions only increased in time and she so she presents back in active labor. OB Exam Vital signs Blood Pressure: 119/59 Pulse Rate: 100 Temperature: 36.3 F Narrative Exam Narrative: HEENT exam within normal limits. Lungs are clear to auscultation percussion. Heart is regular rate and rhythm no S3-S4 murmurs. No thyromegaly. Abdomen is gravid. Fetus is vertex. Extremities without edema and nontender. Assessment and Plan Assessment and Plan Assessment and Plan narrative: 37 week gestation in active labor. Patient is requesting epidural. Anticipate vaginal delivery.
[2023-05-02 13:39] VITALS: BP 119/59; PULSE 100; TEMP 2.4; TEMP 36.3
[2023-05-02 13:46] LABS: Add Manual Diff / Slide Review NO; Basophils Absolute Auto 100 /uL (0-100); Basophils Percent Auto 0.4 % (0-2); Eosinophils Absolute Auto 100 /uL (0-450); Eosinophils Percent Auto 0.6 % (2-4); Hematocrit 34.3 % (36-46); Hemoglobin 11.7 g/dL (12.0-16.0); Lymphocytes Absolute Auto 1400 /uL (1100-4500); Lymphocytes Percent Auto 9.4 % (25-40); Mean Corpuscular Hemoglobin 29.2 PG (26-34); Monocytes Absolute Auto 800 /uL (0-900); Monocytes Percent Auto 5.8 % (3-14); Neutrophils Absolute Auto 12200 /uL (1500-7000); Neutrophils Percent Auto 83.8 % (50-75); Platelet Count 222 X10^3/uL (150-400); Red Blood Cell Count 3.99 X10^6/uL (4.0-5.2); Red Cell Distribution Width 14.2 % (11.6-14.8); White Blood Cell Count 14.6 X10^3/uL (4.5-11.0)
--- NOTE | 2023-05-02 13:53 | P.PCN_ITS ---
Regional Block Pre-procedure Procedure: Continuous Lumbar Epidural for L&D Attending OB provider: Mirella Monte PMH/ROS narrative: 32-year-old , SAB 2, TAB 2, three-month old demise from SIDS prior , in active labor at 37 weeks EGA PSH/Anesthesia history narrative: no obstetrical or medical complications. per chart, h/o EtOH and IVDU. ASA Class: II Labs: Hct 34.3 % (36-46) L 05/02/23 13:06 Plt Count 222 X10^3/uL (150-400) 05/02/23 13:06 Medications: Current Medications Generic Name Dose Route Start Last Admin Trade Name Freq PRN Reason Stop Dose Admin Calcium Carbonate 1,000 mg 05/02/23 13:07 Calcium Carbonate 500 Mg Tab PO Q4HR PRN Dyspepsia Carboprost Tromethamine 250 mcg 05/02/23 13:06 Carboprost 250 Mcg/Ml Ampul IM Q90M PRN Bleeding Oxytocin/Lactated Ringer's 30 unit in 500 mls @ 200 mls/hr 05/02/23 13:06 Oxytocin Premix IV CONT PRN Bleeding Protocol Tranexamic Acid 1,000 mg/ 100 mls @ 200 mls/hr 05/02/23 13:06 Sodium Chloride IV NOW PRN Bleeding Lactated Ringer's 1,000 mls @ 100 mls/hr 05/02/23 13:15 Lactated Ringers IV CONT [place] Lidocaine HCl 20 ml 05/02/23 13:06 Lidocaine 1% 20 Ml INJ INTRA-OP PRN Post Delivery Methylergonovine Maleate 0.2 mg 05/02/23 13:06 Methylergonovine 0.2 Mg Tablet PO Q6HR PRN Heavy Bleeding Methylergonovine Maleate 0.2 mg 05/02/23 13:06 Methylergonovine 0.2 Mg/Ml Vial IM NOW PRN Bleeding Misoprostol 800 mcg 05/02/23 13:06 Misoprostol 200 Mcg Tablet AZ NOW PRN Bleeding Misoprostol 400 mcg 05/02/23 13:06 Misoprostol 200 Mcg Tablet SL NOW PRN Bleeding Naloxone HCl 0.2 mg 05/02/23 13:06 Naloxone 0.4 Mg/Ml Vial IV Q2MIN PRN Opiate Reversal Ondansetron HCl 4 mg 05/02/23 13:07 Ondansetron 4 Mg/2 Ml Inj IV Q4HR PRN Nausea And Vomiting Oxytocin 10 unit 05/02/23 13:06 Oxytocin 10 Unit/Ml Vial IM NOW PRN Bleeding Allergies: Allergies Allergy/AdvReac Type Severity Reaction Status Date / Time Penicillins [PENICILLINS] Allergy Intermediate HIVES Verified 04/24/23 15:13 Procedure Insertion date: 05/02/23 Insertion time: 13:37 Prep/Local: betadine x3 and 1% lidocaine Interspace: L3-4 Patient position: sitting Needle: 18 gauge digitalbox (CSE: 27g Pencan through Hustead, clear CSF, 3mg MPF bupiv) Loss of resistance with: saline MENDOZA at (cm): 5 Catheter placed at SKIN (cm): 10 Catheter in SPACE (cm): 5 Insertion: No CSF, No Blood, No Paresthesia with insertion, No Paresthesia with injection and No Test dose reaction Initial Medications TEST DOSE time: 13:37 TEST DOSE: 1.5% lidocaine with epinephrine 1:200k (mL): 3 BOLUS DOSE time: 13:49 BOLUS DOSE (mL): 3 BOLUS DOSE med: other (infusate) Infusion INFUSION: 0.125% bupivacaine and with fentanyl 2 mcg/mL Subsequent interventions: PCEA 0.1% bupiv with fentanyl, 10/3 Post-procedure Anesthesia time START: 13:32 Anesthesia time END: 16:04 Post-procedure Anesthesia Assessment: Yes CV function: HR/BP stable, Yes Resp function: RR/sat/airway adequate, Yes Post-op hydration adequate, Yes Pain control adequate, Yes Nausea & vomiting absent, Yes Temperature > 36 C, Yes Mental status appropriate and No Anesthesia complications
[2023-05-02] MEDS: FENT 2MCG/ML BUPIV 0.1% EPI 200 MCG/100 ML PLAST..BAG 6 MCG EPIDURAL (14:05)
[2023-05-02 14:07] VITALS: BP 119/59
--- NOTE | 2023-05-02 15:12 | P.PCNOB_ITS ---
Labor & Delivery Delivery date: 05/02/23 Delivery monitor: external FHT and external uterine Route of delivery: L&D Laceration Description: None Estimated blood loss (mL): 100 Anesthesia Type: Epidural Narrative: Patient arrived on Labor and delivery 8 cm dilated. She denied any leakage of fluid or vaginal bleeding. She had been evaluated several hours earlier and was 2 cm dilated and sent home. Patient requested epidural for pain control. heart tones category 1 to category 2 throughout labor. She was AROM for clear fluid and there was a 3 minute deceleration that responded with position change. Patient progressed rapidly and delivered spontaneously, over an intact perineum. The viable female was placed on the maternal abdomen. Delayed cord clamping was performed. After the cord was clamped, cut, cord bloods were obtained. The placenta delivered spontaneously, intact, with 3 vessels. There were no cervical, vaginal, or perineal tears. Estimated blood loss 100 cc. Patient was straight cath for 75 cc of urine as no Camilo catheter was placed with the epidural. Routine care. [place] Baby 1: Infant gender: Female Presentation: vertex Position: Right Occiput Anterior Placenta delivery description: Spontaneous Cord Vessel Description: 3 Vessels score (1 min): 9 score (5 min): 10 Plan for aftercare: Routine care
[2023-05-02] MEDS: ACETAMINOPHEN 325 MG TABLET 650 MG PO (16:04)
[2023-05-02] MEDS: IBUPROFEN 600 MG TABLET PO ×2 (16:04→22:41)
[2023-05-02] MEDS: DERMOPLAST SPRAY 20% 60 ML 1 SPRAY TOP (16:05)
[2023-05-02 17:52] LABS: UR Morphine/Opiate cutoff 300 Negative (Negative); Ur Creatinine Normal (Normal); Ur Specific Gravity Normal (Normal); Urine Amphetamines Negative (Negative); Urine Barbiturates Negative (Negative); Urine Benzodiazepines Negative (Negative); Urine Cocaine Negative (Negative); Urine MDMA Negative (Negative); Urine Methadone Negative (Negative); Urine Methamphetamines Negative (Negative); Urine Oxycodone Negative (Negative); Urine Phencyclidine Negative (Negative); Urine Tetrahydrocannabinol Positive (Negative); Urine Tricyclic Antidepressant Negative (Negative); Urine pH Normal (Normal)
[2023-05-02] MEDS: LANOLIN OINT 7 GM 1 APPLIC TOP (22:40)
[2023-05-03] MEDS: IBUPROFEN 600 MG TABLET PO (05:04)
[2023-05-03 06:44] LABS: Hematocrit 34.4 % (36-46); Hemoglobin 11.7 g/dL (12.0-16.0)
--- NOTE | 2023-05-03 07:32 | P.DS_ITS ---
Discharge Providers Provider Date of admission: 05/02/23 13:03 Discharge Date: 05/03/23 Primary care physician: YASMEEN Srinivasan Consults: 05/02/23 13:06 Consult to Anesthesiology Urgent Comment: Consulting Provider: Anesthesiologist Reason for consultation: Epidural Has provider been notified: Yes 05/03/23 15:10 Consult to Analytical Consultant Routine Comment: Discharge provider: Mirella Monte MD Summary Hospital Course Date Patient Seen: 05/03/23 Time Patient Seen: 07:32 Diagnoses: 37 week in active labor with spontaneous vaginal delivery Hospital Course: Patient arrived on Labor and delivery in active labor. She received an epidural catheter for pain control. She had a spontaneous vaginal delivery without tears . Patient is without difficulty. She denies headaches, scotomata, epigastric pain. Minimal vaginal bleeding. She is urinating and ambulating without difficulty. Tolerating regular diet. Peripartum Data Infant Delivery Method: Natural Vaginal Procedures: Spontaneous vaginal delivery complications: none 1: Gender: Female Disposition of : home Discharge Diagnosis (1) Vaginal delivery: Status: Acute Status at Discharge Cognitive/behavioral status at discharge: oriented Functional status at discharge: independent ambulation Overall status at discharge: patient is progressing back to baseline Time Spent with Patient Time attestation: Total time spent providing and/or coordinating discharge services: Time spent: Less than 30 minutes Objective Labs 05/03/23 06:35 Labs: Laboratory Results - last 24 hr 05/02/23 05/02/23 05/02/23 13:06 13:06 13:11 WBC 14.6 H RBC 3.99 L Hgb 11.7 L Hct 34.3 L MCV 86.0 MCH 29.2 MCHC 34.0 RDW 14.2 Plt Count 222 Neut % (Auto) 83.8 H Lymph % (Auto) 9.4 L [place] % (Auto) 5.8 Eos % (Auto) 0.6 L Baso % (Auto) 0.4 Neut # (Auto) 41729 H Lymph # (Auto) 1400 [place] # (Auto) 800 Eos # (Auto) 100 Baso # (Auto) 100 U Opiates 300ng/mL cut Negative Ur Oxycodone Screen Negative Urine Methadone Screen Negative Ur Barbiturates Screen Negative U Tricyclic Antidepress Negative Ur Phencyclidine Scrn Negative Ur Amphetamines Screen Negative U Methamphetamines Scrn Negative Ur MDMA Scrn (Ecstasy) Negative U Benzodiazepines Scrn Negative Urine Cocaine Screen Negative U Marijuana (THC) Screen Positive H Blood Type A Positive Antibody Screen Negative 05/03/23 06:35 WBC RBC Hgb 11.7 L Hct 34.4 L MCV MCH MCHC RDW Plt Count Neut % (Auto) Lymph % (Auto) [place] % (Auto) Eos % (Auto) Baso % (Auto) Neut # (Auto) Lymph # (Auto) [place] # (Auto) Eos # (Auto) Baso # (Auto) U Opiates 300ng/mL cut Ur Oxycodone Screen Urine Methadone Screen Ur Barbiturates Screen U Tricyclic Antidepress Ur Phencyclidine Scrn Ur Amphetamines Screen U Methamphetamines Scrn Ur MDMA Scrn (Ecstasy) U Benzodiazepines Scrn Urine Cocaine Screen U Marijuana (THC) Screen Blood Type Antibody Screen Exam Vital Signs (past 8 hours): BP 109/62, P73, T36.4 Narrative Exam Narrative: Abdomen is soft, nontender. Uterus is firm, at U, nontender. Perineum intact. Lochia mild. Extremities without edema and nontender. Discharge Plan Discharge Plan Patient Disposition: Home Discharge orders & Medications Prescriptions: New ibuprofen 600 mg Tablet 600 mg PO Q6HR PRN (Reason: Pain, Mild (1-3)) Qty: 20 0RF Discontinued prenat.vits,mayelin,[id number] Tablet 1 tab PO DAILY triamcinolone acetonide 0.1 % ointment 1 applic topical DAILY PRN (Reason: rash) Qty: 80 0RF Follow up/Referrals: Jessica Forde ARNP [Primary Care Provider] - Lewis Gomes MD [Physician] - 6 Weeks Diet/Activity/Treatments Diet: Regular Activity: nothing in vagina for 6 weeks Skin/Wound/Dressing Care Report to your healthcare provider any signs of infection, such as:: chills, fever, increased pain and unusual drainage Visit Report/Discharge Packet Stand Alone Forms: Patient Portal/API Discharge Data Primary Care Provider: Jessica Forde
[2023-05-03 10:08] VITALS: BP 112/70; PULSE 68; RESP 17; TEMP 36.7
== END 2023-05-03 10:55 | disposition home or self-care (01) | DRG 560 ==
PROVIDERS: Admitting Provider Specialist; PCP Nurse Practitioner; Referring Provider Specialist; Visit Provider Specialist
DX: O98.52 Other viral diseases complicating childbirth (principal); B00.9 Herpesviral infection, unspecified; Z3A.37 37 weeks gestation of pregnancy; Z37.0 Single live birth; O76 Abnormality in fetal heart rate and rhythm complicating labor and delivery; O47.1 False labor at or after 37 completed weeks of gestation; O09.213 Supervision of pregnancy with history of pre-term labor, third trimester
CPT/HCPCS: 36415; 59025; 59050; 59409; 80305; 85014; 85018; 85025; 86850; 86900; 86901; G0378; G0379

== ENCOUNTER → 2023-12-20 15:46 | Outpatient (CLI) | payer OTHER, MEDICAID, SELFPAY ==
[2023-12-24 11:18] LABS: QuantiFERON Mitogen Value >10.00 IU/mL (.); QuantiFERON Nil Value 0.13 IU/mL (.); QuantiFERON TB Gold Plus Negative (Negative); QuantiFERON TB1 Ag Value 0.09 IU/mL (.); QuantiFERON TB2 Ag Value 0.11 IU/mL (.)
== END ==
PROVIDERS: PCP Family Medicine; Referring Provider Family Medicine; Visit Provider Family Medicine
DX: Z11.1 Encounter for screening for respiratory tuberculosis (principal)
CPT/HCPCS: 36415; 86480